=== PATIENT | male | born 1945 | race Caucasian/White ===

== ENCOUNTER → 2024-06-29 | Outpatient (CLI) | payer MEDICARE ==
[2024-06-29 12:11] LABS: African American GFR (CKD) 75 (>60 ml/min/1.73 sqM); Blood Urea Nitrogen 20 mg/dL (9-20); Non-African American GFR(CKD) 64 (>60 ml/min/1.73 sqM)
--- NOTE | 2024-06-29 15:54 | CT ---
EXAMINATION TYPE: CT urogram wo/w con CT DLP: 2497.4 mGycm, Automated exposure control for dose reduction was used. DATE OF EXAM: 06/29/2024 2:06 PM COMPARISON: None CLINICAL INDICATION:Male, 78 years old with history of R31.1 BENIGN ESSENTIAL MICROSCOPIC HEMATURIA; PHH, Microscopic hematuria. TECHNIQUE: Urogram of the abdomen and pelvis was performed before and after the administration of 100 cc of IV c ontrast Isovue 300 contrast. Delayed imaging was performed. Coronal and sagittal reformats were perfo rmed. One or more CT dose reduction strategies were utilized during this examination. 2D and 3D recon structions are performed to assist visualization of the urinary tract on a separate workstation. FINDINGS: GENITOURINARY: RIGHT KIDNEY AND URETER: No calculi. No hydronephrosis or hydroureter. No renal mass or other lesions . No urothelial lesions: no filling defect, dilation, stricture or wall thickening. LEFT KIDNEY AND URETER: No calculi. No hydronephrosis or hydroureter. No renal mass or other lesions. No urothelial lesions: no filling defect, dilation, stricture or wall thickening. URINARY BLADDER: Mildly well distended. Normal, no calculi, mass or other lesions. REPRODUCTIVE: Coarse central prostate calcifications. The prostate gland is enlarged measuring 6.5 cm in transverse diameter. This indents upon the urinary bladder base. ABDOMEN LIVER: Unremarkable. GALLBLADDER AND BILE DUCTS: Gallbladder is surgically absent. PANCREAS: Unremarkable. SPLEEN: Few punctate calcified granulomas within the spleen. ADRENAL GLANDS: Unremarkable. STOMACH AND BOWEL: No focal bowel wall thickening or surrounding inflammatory changes. No evidence of bowel obstruction. PERITONEUM: No evidence of pneumoperitoneum, free fluid, or adenopathy. VASCULATURE: Atherosclerotic calcifications are present throughout the abdominal aorta and its branch es. No abdominal aortic aneurysm. MUSCULOSKELETAL: No acute osseous abnormalities. Mild multilevel degenerative disc disease with multi level Schmorl's nodes. SOFT TISSUE/ABDOMINAL WALL: Fat filled right inguinal hernia with the appendix. Patulous left inguina l ring. Small fat filled umbilical hernia. LOWER CHEST: The visualized lung bases are clear. Coronary artery calcifications.. IMPRESSION: 1. No evidence of urolithiasis or renal/urothelial neoplasm. 2. Prostatomegaly. 3. Right Amyand hernia. [facility], , 06/29/2024 3:52 PM
== END | disposition home or self-care (01) ==
LOC: RADCTMAIN 11:28
PROVIDERS: ATTEND Urology
DX: N40.0 Benign prostatic hyperplasia without lower urinary tract symptoms (principal); K40.90 Unilateral inguinal hernia, without obstruction or gangrene, not specified as recurrent; R31.1 Benign essential microscopic hematuria
CPT/HCPCS: 82565; 84520; 74178; 36415; 74400; Q9967